=== PATIENT | female | born 1995 | race Caucasian/White ===

== ENCOUNTER 2019-08-08 18:19 | Emergency (ER) | payer BC, OTHER ==
[~2019-08-08] VITALS: Ht 157.5 cm; Wt 54.4 kg
[2019-08-08 21:16] VITALS: BP 126/80
== END 2019-08-08 22:24 | disposition home or self-care (01) ==
LOC: ER 18:19
DX: S90.452A Superficial foreign body, left great toe, initial encounter (principal); W60.XXXA Contact with nonvenomous plant thorns and spines and sharp leaves, initial encounter; Y93.89 Activity, other specified; Y99.8 Other external cause status; Y92.89 Other specified places as the place of occurrence of the external cause
CPT/HCPCS: 10120; 73660